=== PATIENT | male | born 1980 | race Caucasian/White ===

== ENCOUNTER 2020-03-27 14:04 | Emergency (ER) | payer OTHER ==
[~2020-03-27] VITALS: Ht 175.3 cm; Wt 95.2 kg
[2020-03-27 14:49] LABS: BASOPHILS ABSOLUTE AUTO 0.09 K/mm3 (0.00-0.23); BASOPHILS PERCENT AUTO 1 % (0-2); EOSINOPHILS ABSOLUTE AUTO 0.01 K/mm3 (0.00-0.68); EOSINOPHILS PERCENT AUTO 0 % (0-6); Hematocrit 46.6 % (37.0-53.0); Hemoglobin 17.1 g/dL (13.5-17.5); IMMATURE GRAN ABSOLUTE AUTO 0.03 K/mm3 (0.00-0.10); IMMATURE GRAN PERCENT AUTO 0 % (0-1); LYMPHOCYTES ABSOLUTE AUTO 0.82 K/mm3 (0.84-5.20); LYMPHOCYTES PERCENT AUTO 7 % (21-46); MONOCYTES ABSOLUTE AUTO 0.94 K/mm3 (0.16-1.47); MONOCYTES PERCENT AUTO 8 % (4-13); Mean Corpuscular HGB 35.6 pg (26.0-34.0); Mean Corpuscular HGB Conc 36.7 g/dL (31.5-36.5); Mean Corpuscular Volume 97 fL (80-100); Mean Platelet Volume 11.3 fL (9.1-12.4); NEUTROPHILS PERCENT AUTO 83 % (41-73); Platelet Count 149 K/mm3 (150-400); RDW Coefficient Variation 13.2 % (11.7-14.2); RDW Standard Deviation 46.5 fL (35.1-46.3); White Blood Cell Count 11.39 K/mm3 (4.00-11.30)
[2020-03-27 15:02] LABS: Alanine Aminotransfer (ALT/SGP 146 U/L (12-78); Albumin, Blood 3.4 g/dL (3.4-5.0); Albumin/Globulin Ratio 0.8 (0.8-1.8); Alk Phos 73 U/L (50-136); Anion Gap 17 mmol/L (6-16); Aspartate Aminotrans (AST/SGOT 175 U/L (12-37); Bilirubin, Total 3.2 mg/dL (0.1-1.0); Blood Urea Nitrogen 4 mg/dL (8-24); Bun/Creatinine Ratio 4.6 (12.0-20.0); CO2, Blood 17 mmol/L (21-32); Calcium, Blood 8.5 mg/dL (8.5-10.1); Chloride, Blood 101 mmol/L (98-108); Creatinine, Blood 0.88 mg/dL (0.60-1.20); Globulin, Blood 4.4 g/dL (2.2-4.0); Glomerular Filtration Rate >60 (60-); Glucose, Blood 110 mg/dL (70-99); Potassium, Blood 3.6 mmol/L (3.5-5.5); Sodium, Blood 135 mmol/L (136-145); Total Protein, Blood 7.8 g/dL (6.4-8.2); Troponin I <0.015 ng/mL (0.000-0.040)
[2020-03-27] MEDS ORDERED: CITA20 PO (17:00)
[2020-03-27] MEDS ORDERED: PRAZ2 PO (17:00)
[2020-03-27] MEDS ORDERED: BUPROPION XL150 M1 PO (17:00)
[2020-03-27] MEDS ORDERED: TRAZ100 PO (17:01)
[2020-03-27] MEDS ORDERED: SERT50 PO (17:01)
[2020-03-27] MEDS ORDERED: QUET25 PO (17:02)
[2020-03-27] MEDS ORDERED: Capsaicin60 GM TOP (17:03)
[2020-03-27] MEDS ORDERED: CYAN500 PO (17:03)
[2020-03-27] MEDS ORDERED: B-1100 M1 PO (17:04)
[2020-03-27] MEDS ORDERED: PYRI100 PO (17:05)
[2020-03-27] MEDS ORDERED: PROM12.5S PR (17:08)
[2020-03-27] MEDS ORDERED: TOPI50 PO (17:15)
[2020-03-27] MEDS ORDERED: Inderal 20 mg T20 MG PO (17:17)
[2020-03-27] MEDS ORDERED: Hydroxyzine HCl50 MG PO (17:17)
[2020-03-27] MEDS ORDERED: PROM25 PO (17:21)
== END 2020-03-27 17:22 | disposition home or self-care (01) ==
LOC: ER 14:04
PROVIDERS: Student in an Organized Health Care Education/Training Program
DX: R06.00 Dyspnea, unspecified (principal); Z20.828 Contact with and (suspected) exposure to other viral communicable diseases; F41.9 Anxiety disorder, unspecified; Z79.899 Other long term (current) drug therapy; Z87.820 Personal history of traumatic brain injury
CPT/HCPCS: 71045; 80053; 84484; 85025; 85379; 93005; 93010; 96374; 96375; 99285-25; J2405; J2550; U0003

== ENCOUNTER 2020-06-26 17:53 | Inpatient (IN) | payer OTHER ==
[~2020-06-26] VITALS: Ht 175.3 cm; Wt 81.8 kg
[~2020-06-26 17:53] MED LIST: B-1100 M1 PO; BUPROPION XL150 M1 PO; CITA20 PO; CYAN500 PO; Capsaicin60 GM TOP; Hydroxyzine HCl50 MG PO; Inderal 20 mg T20 MG PO; PRAZ2 PO; PROM12.5S PR; PROM25 PO; PYRI100 PO; QUET25 PO; SERT50 PO; TOPI50 PO; TRAZ100 PO
[2020-06-26 18:25] LABS: BASOPHILS ABSOLUTE AUTO 0.03 K/mm3 (0.00-0.23); BASOPHILS PERCENT AUTO 0 % (0-2); EOSINOPHILS PERCENT AUTO 0 % (0-6); Hematocrit 30.4 % (37.0-53.0); Hemoglobin 10.6 g/dL (13.5-17.5); IMMATURE GRAN ABSOLUTE AUTO 0.07 K/mm3 (0.00-0.10); IMMATURE GRAN PERCENT AUTO 1 % (0-1); LYMPHOCYTES PERCENT AUTO 9 % (21-46); MONOCYTES ABSOLUTE AUTO 0.49 K/mm3 (0.16-1.47); MONOCYTES PERCENT AUTO 7 % (4-13); Mean Corpuscular HGB 34.8 pg (26.0-34.0); Mean Corpuscular HGB Conc 34.9 g/dL (31.5-36.5); Mean Corpuscular Volume 100 fL (80-100); Mean Platelet Volume 10.8 fL (9.1-12.4); NEUTROPHILS ABSOLUTE AUTO 5.71 K/mm3 (1.96-9.15); NEUTROPHILS PERCENT AUTO 83 % (41-73); NRBC ABSOLUTE 0.03 K/mm3 (0.00-0.02); NRBC Auto 0.4 /100 WBC (0.0-0.2); Platelet Count 289 K/mm3 (150-400); RDW Coefficient Variation 13.9 % (11.7-14.2); RDW Standard Deviation 49.2 fL (35.1-46.3); Red Blood Cell Count 3.05 M/mm3 (4.30-5.90)
[2020-06-26 18:42] LABS: Alanine Aminotransfer (ALT/SGP 31 U/L (12-78); Albumin, Blood 2.5 g/dL (3.4-5.0); Albumin/Globulin Ratio 0.5 (0.8-1.8); Alk Phos 108 U/L (50-136); Anion Gap 14 mmol/L (6-16); Aspartate Aminotrans (AST/SGOT 73 U/L (12-37); Bilirubin, Total 1.8 mg/dL (0.1-1.0); Blood Urea Nitrogen 9 mg/dL (8-24); Bun/Creatinine Ratio 8.2 (12.0-20.0); CO2, Blood 28 mmol/L (21-32); Calcium, Blood 8.4 mg/dL (8.5-10.1); Chloride, Blood 95 mmol/L (98-108); Ethanol (Alcohol), Blood, Med 42 mg/dL; Globulin, Blood 4.8 g/dL (2.2-4.0); Glomerular Filtration Rate >60 (60-); Glucose, Blood 111 mg/dL (70-99); Potassium, Blood 3.1 mmol/L (3.5-5.5); Sodium, Blood 137 mmol/L (136-145); Total Protein, Blood 7.3 g/dL (6.4-8.2)
[2020-06-26 19:17] LABS: Source, Urine Clean Catch
[2020-06-26 19:21] LABS: Appearance, Urine Clear (Clear); Blood, Urine 1+ (Neg); Color, Urine Amber (P-Yellow); Glucose Qualitative, Urine Neg (Neg); Ketones, Urine 1+ (Neg); Leukocyte Esterase, Urine 1+ (Neg); Nitrite, Urine Pos (Neg); Protein, Urine 2+ (Neg); Urobilinogen, Urine 4+ (Normal)
[2020-06-26 19:29] LABS: Bilirubin, Urine 2+ (Neg)
[2020-06-26 19:31] LABS: Hyaline Casts Rare /lpf (0-2); Red Blood Cells, Urine 0-2 /hpf (0-2); Squamous Epithelial Cells Rare /hpf (Few)
[2020-06-26 19:32] LABS: Bacteria Rare /hpf; Transitional Epithelial Cells Few /hpf (0-Rare)
[2020-06-26 19:36] LABS: U Amphetamine Screen Not Detected; U Barbituate Screen Not Detected; U Benzodiazapine Screen Not Detected; U Buprenorphine Screen Not Detected; U Cannabinoids Screen DETECTED; U Cocaine Screen Not Detected; U Methadone Screen Not Detected; U Methamphetamine Screen Not Detected; U Opiates Screen Not Detected; U Oxycodone Screen Not Detected; U Phencyclidine Screen Not Detected; U Propoxyphene Screen Not Detected
[2020-06-26 19:43] LABS: Magnesium, Blood 1.7 mg/dL (1.6-2.4); Phosphorus, Blood 3.8 mg/dL (2.5-4.9)
[2020-06-26] MEDS ORDERED: Aspir 8181 MG PO (20:09)
[2020-06-26] MEDS ORDERED: Percocet 5-3251 EACH PO (20:10)
[2020-06-26 23:42] LABS: CPK Creatine Kinase 59 U/L (39-308); Troponin I <0.015 ng/mL (0.000-0.040)
--- NOTE | 2020-06-27 04:32 | NUR ---
SHIFT SUMMARY ASSUMED CARE OF PT AT 2100. PT IS A/OX4, STATES HE HAS NUMBESS IN HIS BODY FROM THE CHEST DOWN. PT STATES HE FEELS DEPRESSED DUE TO DIVORCE WITH HIS CAREGIVER/ THIS . PT BEEN DRINKING FOR THE PAST 3 YEARS AND STATES HE HAS BEEN FEELING THE WORST THIS LAST 6 MONTHS. TELE SHOWS SINUS @ 82, LUNG SOUNDS CLEAR. PT STATES HE HAS BEEN EATING POORLY BECAUSE HE FORGETS TO EAT DUE TO HIS TBI FROM AN ACCIDENT [place]. PT HAS BEEN USING URINAL AT BEDSIDE. NO ACUTE EVENTS DURING THE NIGHT. PT SLEPT A COUPLE HOURS DURING THE NIGHT. CALL LIGHT IN REACH, BED IN LOWEST POSTION.
[2020-06-27 07:37] LABS: BASOPHILS ABSOLUTE AUTO 0.02 K/mm3 (0.00-0.23); BASOPHILS PERCENT AUTO 0 % (0-2); EOSINOPHILS ABSOLUTE AUTO 0.04 K/mm3 (0.00-0.68); EOSINOPHILS PERCENT AUTO 1 % (0-6); Hematocrit 28.5 % (37.0-53.0); Hemoglobin 9.9 g/dL (13.5-17.5); IMMATURE GRAN ABSOLUTE AUTO 0.03 K/mm3 (0.00-0.10); IMMATURE GRAN PERCENT AUTO 0 % (0-1); LYMPHOCYTES ABSOLUTE AUTO 1.51 K/mm3 (0.84-5.20); LYMPHOCYTES PERCENT AUTO 22 % (21-46); MONOCYTES ABSOLUTE AUTO 0.47 K/mm3 (0.16-1.47); MONOCYTES PERCENT AUTO 7 % (4-13); Mean Corpuscular HGB 34.6 pg (26.0-34.0); Mean Corpuscular HGB Conc 34.7 g/dL (31.5-36.5); Mean Corpuscular Volume 100 fL (80-100); Mean Platelet Volume 10.8 fL (9.1-12.4); NEUTROPHILS ABSOLUTE AUTO 4.73 K/mm3 (1.96-9.15); NEUTROPHILS PERCENT AUTO 70 % (41-73); NRBC ABSOLUTE 0.02 K/mm3 (0.00-0.02); NRBC Auto 0.3 /100 WBC (0.0-0.2); Platelet Count 335 K/mm3 (150-400); Red Blood Cell Count 2.86 M/mm3 (4.30-5.90)
[2020-06-27 07:56] LABS: Alanine Aminotransfer (ALT/SGP 28 U/L (12-78); Albumin, Blood 2.8 g/dL (3.4-5.0); Albumin/Globulin Ratio 0.7 (0.8-1.8); Alk Phos 96 U/L (50-136); Anion Gap 7 mmol/L (6-16); Aspartate Aminotrans (AST/SGOT 61 U/L (12-37); Bilirubin, Total 2.2 mg/dL (0.1-1.0); Blood Urea Nitrogen 7 mg/dL (8-24); CO2, Blood 29 mmol/L (21-32); CPK Creatine Kinase 52 U/L (39-308); Calcium, Blood 8.4 mg/dL (8.5-10.1); Chloride, Blood 101 mmol/L (98-108); Globulin, Blood 4.2 g/dL (2.2-4.0); Glomerular Filtration Rate >60 (60-); Glucose, Blood 98 mg/dL (70-99); Potassium, Blood 3.3 mmol/L (3.5-5.5); Sodium, Blood 137 mmol/L (136-145); Troponin I <0.015 ng/mL (0.000-0.040)
--- NOTE | 2020-06-27 10:56 | NUR ---
Echocardiogram completed.
--- NOTE | 2020-06-27 12:02 | NUR ---
CONFIRMED 2,500 ML BOLUS W/ DR ISTRATE BEFORE PROCEEDING
[2020-06-27 12:07] LABS: Source, Urine Clean Catch
[2020-06-27 12:17] LABS: Appearance, Urine Clear (Clear); Blood, Urine Neg (Neg); Color, Urine Yellow (P-Yellow); Glucose Qualitative, Urine Neg (Neg); Ketones, Urine Neg (Neg); Leukocyte Esterase, Urine Neg (Neg); Nitrite, Urine Neg (Neg); Protein, Urine 1+ (Neg); Urobilinogen, Urine 3+ (Normal)
[2020-06-27 12:36] LABS: Bilirubin, Urine 1+ (Neg)
[2020-06-27 13:19] LABS: BASOPHILS ABSOLUTE AUTO 0.03 K/mm3 (0.00-0.23); BASOPHILS PERCENT AUTO 1 % (0-2); EOSINOPHILS ABSOLUTE AUTO 0.03 K/mm3 (0.00-0.68); EOSINOPHILS PERCENT AUTO 1 % (0-6); Hematocrit 26.5 % (37.0-53.0); IMMATURE GRAN ABSOLUTE AUTO 0.04 K/mm3 (0.00-0.10); IMMATURE GRAN PERCENT AUTO 1 % (0-1); LYMPHOCYTES ABSOLUTE AUTO 1.07 K/mm3 (0.84-5.20); LYMPHOCYTES PERCENT AUTO 17 % (21-46); MONOCYTES ABSOLUTE AUTO 0.61 K/mm3 (0.16-1.47); MONOCYTES PERCENT AUTO 10 % (4-13); Mean Corpuscular HGB 34.2 pg (26.0-34.0); Mean Corpuscular Volume 101 fL (80-100); Mean Platelet Volume 10.8 fL (9.1-12.4); NEUTROPHILS ABSOLUTE AUTO 4.39 K/mm3 (1.96-9.15); NEUTROPHILS PERCENT AUTO 71 % (41-73); Platelet Count 319 K/mm3 (150-400); RDW Coefficient Variation 13.9 % (11.7-14.2); RDW Standard Deviation 50.3 fL (35.1-46.3); Red Blood Cell Count 2.63 M/mm3 (4.30-5.90); White Blood Cell Count 6.17 K/mm3 (4.00-11.30)
--- NOTE | 2020-06-27 17:24 | NUR ---
SHIFT SUMMARY PT A&Ox4, COOPERATIVE, AND CALM. ON TELE SR @ 64. EXPERIENCING WEAKNESS AND NUMBESS FROM THE CHEST DOWN, BUT PRIMARILY IN THE LEGS. ALSO EXPERIENCING PAIN IN THE LEGS. PT WAS HAVING MILD TREMORS AND BECOMING MORE AMPED UP THAN EARLIER IN THE DAY. CIWA WAS THEN ORDERED, PT SCORED A 7 AT TIME OF FIRST ASSESSMENT AND REQUIRED NO INTERVENTIONS. 2.5 L BOLUS GIVEN TODAY PER ISTRATE AND SEPSIS PROTOCOL. BP STILL RAN LOW 100/60'S. LEVOFLOXACIN CURRENTLY RUNNING WITH DELAYED BANANA BAG. URINALYSIS AND COVID COLLECTED TODAY, COVID CAME BACK NEGATIVE. PT HAD SEVERAL LOOSE BM. WILL REPORT TO ONCOMING NURSE. PT CURRENTLY LYING IN BED WITH CALL LIGHT WITHIN REACH.
--- NOTE | 2020-06-28 02:02 | NUR ---
PT TRANSFER ASSUMED CARE OF PT AT 1900. PT WAS A/OX4 BUT HAS BEEN GETTING PRGESSIVELY MORE CONFUSED THE SHIFT WENT ON. AROUND 2099 PT RECEIVED LIBRIUM FOR SOME MILD CONFUSION. THEN AROUND 004 PT BECOME MORE CONFUSED, WOULD TEAR OFF IS TELE MONITOR AND CONTINUOUS PULSE OX. PT IS NOT ORIENTED TO SELF/PLACE OR SITUATION. PT HAS TREMORS AND SWEATS. VITAL SIGNS ARE STABLE. PT HAS BEEN HEARING/SEEING PEOPLE HE KNOWS IN HIS ROOM, PT WORDS ARE BECOMING MORE SCRAMBLED AND HE HAS FLIGHT OF IDEAS. PT URINE IS DARK AND ELLIE. PT HAS HAS TWO EPISODES OF LOOSE STOOL, IMODIUM WAS GIVEN ONCE. PT IS 2P SBA TO COMMODE. PT IS NOT BEING TRANSFERED TO ICU DO TO INCREASING CIWAH SCORES. LAST CIWAH WAS 18. TIME IS 0215 ON 06/28/20.
--- NOTE | 2020-06-28 03:00 | NUR ---
PT ARRIVES TO ICU 5 PCU STATUS PT AT 0222 FROM MEDICAL FLOOR FOR ETOH WITHDRAWAL WITH CIWA OF 19 PER MEDICAL FLOOR RN. ON ARRIVAL TO ICU, PT IS NOTED THRASHING IN BED, DOES NOT REDIRECT, RARELY MAKES EYE CONTACT TO SPOKEN NAME. HE IS MUMBLING WITH ONLY OCCASIONALLY RECOGNIZABLE WORDS, VISIBLE TREMORS ARE NOTED. EYE AND EXTREMITY MOVEMENT INDICATE VISUAL, AUDITORY, AND TACTILE HALLUCINATIONS, CIWA IS RATED AT GREATER THAN 40, ATIVAN 4 MG IV ADMIN AND PT IS MONITORED X 15 MINUTES WITHOUT IMPROVEMENT IN SCORE, ADDITIONAL DOSE OF ATIVAN 4 MG IV ADMINISTERED WITH CIWA DECREASED TO 10 WITHIN 10 MINUTES OF ADMINISTRATION. PT IS NOW RESTING QUIETLY, SATS ARE MAINTAINING MID 90S, RESP RATE HIGH TEEN, LUNGS ARE CLEAR THROUGHOUT. HRR, SINUS ON MONITOR, RATE 70S, PRESSURE MAINTAINING, SKIN IS PWD, NO EDEMA IS NOTED, PULSES ARE FULL X 4. ABD SOFT, NO GRIMACING WITH LIGHT PALPATION. ATTENDS PLACED FOR PROBABLE URINARY INCONTINENCE. IV ACCESS IS NOTED 20 GUAGE TO LEFT FOREARM, FLUSHES WELL, NO REDNESS/SWELLING, OR DRAINAGE AT INSERTIONS SITE, DRESSING CDI, IVF WITH ADDITIVES IS INFUSING AT 75 ML/HR SEE EMAR. WILL CONT TO MONITOR.
--- NOTE | 2020-06-28 05:33 | NUR ---
PT INTITIALLY PRESENTS TO ICU WITH CIWA GREATER THAN 40 HOWEVER TOTAL NOC SHIFT ATIVAN PRIOR TO ARRIVAL TO ICU WAS 3 MG, AND LIBRIUM WAS 100 MG TOTAL. TWO ATIVAN DOSES OF 4 MG IV WERE ADMINISTERED AT 15 MINUTE ORDERED INTERVAL WITH GOOD IMPROVEMENT IN PT'S CIWA SCORE, HE REMAINS AT CIWA SCORE OF 10 AT THIS TIME, CONTINUES TO MAINTAIN AIRWAY WELL, SATS MAINTAINING UPPER 90S ON ROOM AIR, LUNGS REMAIN CLEAR THROUGHOUT, RATE TEENS. SINUS RHYTHM CONTINUES, PT IS NOTED SINUS PETER MID 50S AT THIS TIME, PRESSURES CONT TO MAINTAIN. ATTENDS REMAINS CLEAN AND DRY AT THIS TIME AND IVF CONTINUES INFUSING, WILL CONT TO MONITOR CIWA SCORES AND MEDICATE PRN.
[2020-06-28 06:31] LABS: BASOPHILS ABSOLUTE AUTO 0.03 K/mm3 (0.00-0.23); BASOPHILS PERCENT AUTO 1 % (0-2); EOSINOPHILS ABSOLUTE AUTO 0.06 K/mm3 (0.00-0.68); EOSINOPHILS PERCENT AUTO 1 % (0-6); Hematocrit 26.1 % (37.0-53.0); Hemoglobin 8.8 g/dL (13.5-17.5); IMMATURE GRAN ABSOLUTE AUTO 0.04 K/mm3 (0.00-0.10); IMMATURE GRAN PERCENT AUTO 1 % (0-1); LYMPHOCYTES ABSOLUTE AUTO 1.33 K/mm3 (0.84-5.20); LYMPHOCYTES PERCENT AUTO 28 % (21-46); MONOCYTES ABSOLUTE AUTO 0.32 K/mm3 (0.16-1.47); MONOCYTES PERCENT AUTO 7 % (4-13); Mean Corpuscular HGB 34.5 pg (26.0-34.0); Mean Corpuscular HGB Conc 33.7 g/dL (31.5-36.5); Mean Corpuscular Volume 102 fL (80-100); Mean Platelet Volume 10.5 fL (9.1-12.4); NEUTROPHILS ABSOLUTE AUTO 2.93 K/mm3 (1.96-9.15); NEUTROPHILS PERCENT AUTO 62 % (41-73); Platelet Count 365 K/mm3 (150-400); RDW Coefficient Variation 14.2 % (11.7-14.2); RDW Standard Deviation 52.2 fL (35.1-46.3); Red Blood Cell Count 2.55 M/mm3 (4.30-5.90); White Blood Cell Count 4.71 K/mm3 (4.00-11.30)
[2020-06-28 06:58] LABS: Alanine Aminotransfer (ALT/SGP 22 U/L (12-78); Albumin, Blood 2.2 g/dL (3.4-5.0); Albumin/Globulin Ratio 0.6 (0.8-1.8); Alk Phos 79 U/L (50-136); Aspartate Aminotrans (AST/SGOT 34 U/L (12-37); Bilirubin, Direct 0.8 mg/dL (0.0-0.3); Bilirubin, Indirect 0.7 mg/dL (0.1-0.7); Bilirubin, Total 1.5 mg/dL (0.1-1.0); Blood Urea Nitrogen 5 mg/dL (8-24); Bun/Creatinine Ratio 5.9 (12.0-20.0); CO2, Blood 25 mmol/L (21-32); Calcium, Blood 7.8 mg/dL (8.5-10.1); Chloride, Blood 115 mmol/L (98-108); Creatinine, Blood 0.85 mg/dL (0.60-1.20); Globulin, Blood 3.8 g/dL (2.2-4.0); Glomerular Filtration Rate >60 (60-); Glucose, Blood 87 mg/dL (70-99); Magnesium, Blood 2.2 mg/dL (1.6-2.4); Percent Saturation 28.4 % (20.0-50.0); Phosphorus, Blood 2.6 mg/dL (2.5-4.9); Potassium, Blood 3.3 mmol/L (3.5-5.5)
[2020-06-28 07:19] LABS: Anion Gap 7 mmol/L (6-16); Sodium, Blood 147 mmol/L (136-145)
--- NOTE | 2020-06-28 10:24 | NUR ---
CARE ASSUMED ASSESSMENT COMPLETED, PT RESTING IN BED WITH EYES CLOSED, WAKES EASILY TO VOICE, IS CONFUSED UPON WAKING AND DOES NOT FOLLOW COMMANDS, GOES BACK TO SLEEP QUICKLY. VSS, BANANA BAG INFUSING 75ML/HR, NO OTHER GTT'S AT THIS TIME. PT SLEPT UNTIL 1000 WHEN HE WOKE STATING HE HAD TO VOID, WAS CONFUSED AND WOULD NOT USE URINAL, BEGAN THRASHING IN BED AND ATTEMPTING TO GET UP, PULLING AT LINES. RESTRAINTS PLACED PER ORDERS, ATIVAN ADMINISTERED. PT THEN WENT BACK TO SLEEP, WILL CONTINUE TO MONITOR.
--- NOTE | 2020-06-28 11:41 | NUR ---
UPDATE DR. HUERTA IN TO SEE PATIENT, IS AWARE OF BEHAVIOR AND ELEVATED CIWA SCORES. PT CHANGED TO ICU STATUS, PRECEDEX INITIAITED. PT PLEASANT BUT CONFUSED, ANXIOUS, ATTEMPTING TO GET OUT OF BED. PRECEDEX CURRENTLY AT 0.7MCG, HR 60'S, BP STABLE, WILL TITRATE NEEDED.
[2020-06-28 13:18] LABS: BASOPHILS ABSOLUTE AUTO 0.04 K/mm3 (0.00-0.23); BASOPHILS PERCENT AUTO 1 % (0-2); EOSINOPHILS ABSOLUTE AUTO 0.05 K/mm3 (0.00-0.68); EOSINOPHILS PERCENT AUTO 1 % (0-6); Hematocrit 29.5 % (37.0-53.0); Hemoglobin 9.7 g/dL (13.5-17.5); IMMATURE GRAN ABSOLUTE AUTO 0.04 K/mm3 (0.00-0.10); IMMATURE GRAN PERCENT AUTO 1 % (0-1); LYMPHOCYTES ABSOLUTE AUTO 1.19 K/mm3 (0.84-5.20); LYMPHOCYTES PERCENT AUTO 25 % (21-46); MONOCYTES ABSOLUTE AUTO 0.36 K/mm3 (0.16-1.47); MONOCYTES PERCENT AUTO 8 % (4-13); Mean Corpuscular HGB Conc 32.9 g/dL (31.5-36.5); Mean Corpuscular Volume 104 fL (80-100); Mean Platelet Volume 10.3 fL (9.1-12.4); NEUTROPHILS ABSOLUTE AUTO 3.02 K/mm3 (1.96-9.15); NEUTROPHILS PERCENT AUTO 64 % (41-73); Platelet Count 416 K/mm3 (150-400); RDW Coefficient Variation 14.1 % (11.7-14.2); RDW Standard Deviation 53.1 fL (35.1-46.3); Red Blood Cell Count 2.85 M/mm3 (4.30-5.90)
[2020-06-28 13:25] LABS: Source, Urine Catheter
[2020-06-28 14:11] LABS: Appearance, Urine Clear (Clear); Bilirubin, Urine Neg (Neg); Blood, Urine Neg (Neg); Color, Urine Amber (P-Yellow); Glucose Qualitative, Urine Neg (Neg); Ketones, Urine Neg (Neg); Leukocyte Esterase, Urine Neg (Neg); Nitrite, Urine Neg (Neg); Protein, Urine Neg (Neg); Specific Gravity, Urine 1.005 (1.003-1.022); Urobilinogen, Urine 1+ (Normal)
--- NOTE | 2020-06-28 19:00 | NUR ---
ASSUMED CARE OF PT, BEDSIDE REPORT RECEIVED. PT IS NOTED TO BE RESTING QUIETLY PRIOR TO STAFF ENTERING ROOM HOWEVER WITH STAFF AT BEDSIDE AND SPEAKING IN ROOM, PT IS NOTED TO HAVE INCREASED AGITATION AND BECOMES RESTLESS IN THE BED PULLING AGAINST WRIST RESTRAINTS AND MUMBLING. HE RETURNS TO RESTING QUIETLY WHEN STIMULUS OF STAFF SPEAKING IS REMOVED FROM ROOM. LUNGS ARE CLEAR THROUGHOUT, SATS MAINTAINING ON ROOM AIR, RESP RATE TEENS, NO VISIBLE INCREASED WORK OF BREATHING, MUMBLING DURATION EQUIVALENT TO SPEAKING IN FULL SENTENCES. HRR, SINUS ON MONITOR, SINUS PETER IN THE 50S WITH PERIODS OF CALM, INCREASES TO 70S WITH AGITATION. HYPOACTIVE BOWEL TONES, ABD SOFT, ATTENDS REMAINS IN PLACE. PATEL CATH IS NOW NOTED, DRAINING CLEAR DARK YELLOW URINE TO GRAVITY. BANANA BAG INFUSING AT 75 ML/HR, WELL K-PHOS AT 100 ML/HR, AND PRECEDEX AT 0.3 MCG/KG/HR. BILAT WRIST RESTRAINTS, SEE RESTRAINT DOCUMENTATION, IV ACCESS NOTED TO BILAT HANDS, SEE VASCULAR ACCESS CHARTING. WILL MONITOR CIWA AND TITRATE PRECEDEX HR ALLOWS, ATIVAN PER ORDERS.
--- NOTE | 2020-06-28 19:31 | NUR ---
END OF SHIFT PT HAD UNEVENTFUL SHIFT AFTER PRECEDEX GTT INITIATED. HR 50'S SINUS, OTHER VSS, SCHEDULED BP MEDS HELD FOR HR. PRECEDEX AT 0.3MCG, PT RESTING QUIETLY LONG NOT STIUMULATED. NO BATH GIVEN TODAY PT BECOMES AGITATED WHEN WOKEN, TRYING TO GET OOB TO GO TO BR, NOT EASILY REDIRECTABLE BUT CALMS AND GOES BACK TO SLEEP WHEN STAFF STEPS OUT OF ROOM. ORIENTED TO SELF ONLY. PATEL AND 2 IV'S PLACED THIS SHIFT, ALL PATENT, GOOD URINE OUTPUT, NO BM THIS SHIFT. REPORT TO ONCOMING NURSE.
[2020-06-29 04:49] LABS: BASOPHILS ABSOLUTE AUTO 0.03 K/mm3 (0.00-0.23); BASOPHILS PERCENT AUTO 1 % (0-2); EOSINOPHILS ABSOLUTE AUTO 0.06 K/mm3 (0.00-0.68); EOSINOPHILS PERCENT AUTO 1 % (0-6); Hematocrit 27.4 % (37.0-53.0); Hemoglobin 9.2 g/dL (13.5-17.5); IMMATURE GRAN ABSOLUTE AUTO 0.03 K/mm3 (0.00-0.10); IMMATURE GRAN PERCENT AUTO 1 % (0-1); LYMPHOCYTES PERCENT AUTO 22 % (21-46); MONOCYTES ABSOLUTE AUTO 0.36 K/mm3 (0.16-1.47); MONOCYTES PERCENT AUTO 7 % (4-13); Mean Corpuscular HGB 34.3 pg (26.0-34.0); Mean Corpuscular HGB Conc 33.6 g/dL (31.5-36.5); Mean Corpuscular Volume 102 fL (80-100); Mean Platelet Volume 10.2 fL (9.1-12.4); NEUTROPHILS PERCENT AUTO 69 % (41-73); Platelet Count 447 K/mm3 (150-400); RDW Standard Deviation 51.6 fL (35.1-46.3); Red Blood Cell Count 2.68 M/mm3 (4.30-5.90); White Blood Cell Count 5.48 K/mm3 (4.00-11.30)
[2020-06-29 05:07] LABS: Alanine Aminotransfer (ALT/SGP 21 U/L (12-78); Albumin, Blood 2.1 g/dL (3.4-5.0); Albumin/Globulin Ratio 0.5 (0.8-1.8); Alk Phos 74 U/L (50-136); Anion Gap 8 mmol/L (6-16); Aspartate Aminotrans (AST/SGOT 26 U/L (12-37); Bilirubin, Total 1.4 mg/dL (0.1-1.0); Blood Urea Nitrogen 3 mg/dL (8-24); Bun/Creatinine Ratio 3.3 (12.0-20.0); CO2, Blood 26 mmol/L (21-32); Calcium, Blood 7.9 mg/dL (8.5-10.1); Chloride, Blood 111 mmol/L (98-108); Creatinine, Blood 0.92 mg/dL (0.60-1.20); Globulin, Blood 3.9 g/dL (2.2-4.0); Glomerular Filtration Rate >60 (60-); Glucose, Blood 100 mg/dL (70-99); Magnesium, Blood 2.2 mg/dL (1.6-2.4); Sodium, Blood 145 mmol/L (136-145)
--- NOTE | 2020-06-29 05:43 | NUR ---
PT WITH INTERMITTENT PERIODS OF INCREASED AGITATION EARLY IN THIS SHIFT, PRECEDEX WAS TITRATED WITH CARE PT'S BASELINE HEART RATE WITH SLEEP WAS LOW TO MID 50S ON SUNDAY NOC WITHOUT PRECEX INFUSING, OF THIS AM PRECEDEX IS INFUSING AT 0.5 MCG/KG/HR, HE REMAINS ROUSABLE TO VERBAL STIMULI, MUMBLED SPEECH CONTINUES HOWEVER OF 399 ASSESSMENT SPEECH IS SOMEWHAT UNDERSTOOD, HE DID ANSWER THAT HE IS IN THE HOSPITAL HOWEVER STATED THAT HE WAS IN [place] BUT THEN LAUGHS AND SAYS NOT [place] BUT IS UNABLE TO STATE LOCATION OF HOSPITAL. HE CONTINUES TO MAINTAIN SATS ON ROOM AIR, LUNGS REMAIN CLEAR THROUGHOUT, RATE MID TEENS. HRR, SINUS PETER IN THE 50S MOST OF THIS SHIFT, DID DECREASE TO MID 40S WITH PRECEDEX INCREASE TO 0.6 MCG/KG/HR DURING EXTENDED DWELL INSERTION HOWEVER IMPROVED AND MAINTAINING AT PT'S BASELINE WITH TITRATION BACK DOWN TO 0.5 MCG/KG/HR, PRESSURES MAINTAINING STABLE, PULSES REMAIN FULL X 4. ABD CONTINUES WITH HYPOACTIVE BOWEL TONES, SOFT, NONTENDER TO PALP. PATEL CONTINUES DRAINING CLEAR DARK YELLOW URINE THROUGHOUT NOC.
--- NOTE | 2020-06-29 07:27 | NUR ---
ASSUMED CARE: PT RESTING IN BED, ROUSES EASILY. BILATERAL WRIST RESTRAINTS IN PLACE DUE TO FIDGETING AND ACCIDENTAL PULL OF LINES. HE IS CURRENTLY ON 0.5MCG/KG/MIN OF PRECEDEX WITH HR IN 50S WHICH BLENDING TANK TENDER REPORTS BASELINE. ISTRATE CALLED AND INSTRUCTS TO GIVE KPHOS INSTEAD OF SECOND BAG OF KCL. NO ACUTE NEEDS AT THIS TIME.
--- NOTE | 2020-06-29 10:13 | NUR ---
CALL TO PHARMACY TO VERIFY IF BANANA BAG IS COMPATIBLE WITH KPHOS WITH NO DATA. AWAITING BANANA BAG FOR AFTER KPHOS COMPLETED.
--- NOTE | 2020-06-29 11:17 | NUR ---
PT'S DAUGHTER CLARITY ARRIVED AND WAS GIVEN AN UPDATE. SHE WAS TOLD THAT NO ONE ELSE IS LISTED AT THIS TIME FOR PERMISSION TO GIVE MEDICAL INFORMATION SO OTHER FAMILY WILL BE DEFERRED TO HER. PRECEDEX TITRATED TO 0.3MCG/KG/MIN AT THIS TIME. RESTING QUIETLY
--- NOTE | 2020-06-29 18:44 | NUR ---
SHIFT SUMMARY: PRECEDEX AT 0.3MCG/KG/MIN. MEDICATED WITH 2MG ATIVAN X1. REMAINS IN BILATERAL WRIST RESTRAINTS. WAKES UP OCCASIONALLY, TALKING TO STAFF BUT SPEECH IS AT TIMES GARBLED AND CONFUSED. PT HAS BEEN PLEASANT AND COOPERATIVE TODAY, CIWA 7
--- NOTE | 2020-06-29 21:14 | NUR ---
CARE ASSUMPTION PT A&O TO SELF, CALM & COOPERATIVE, FIDGETING W/ BLANKETS & ITEMS WITHIN REACH. BILAT HANDS TREMULOUS. SPEECH INTERMITTENTLY MUMBLED/CLEAR. BILAT SWR IN PLACE. CIWA 4. PRECEDEX GTT TITRATED FROM 0.3 MCG/KG/HR TO 0.2 MCG/KG/HR. VSS. MONITOR SHOWS SB, HR 50's. SPO2 > 92% ON RA. PATEL CATH PATENT & DRAINING. WILL CONTINUE TO MONITOR & PROVIDE CARE.
[2020-06-30 03:46] LABS: BASOPHILS ABSOLUTE AUTO 0.04 K/mm3 (0.00-0.23); BASOPHILS PERCENT AUTO 1 % (0-2); EOSINOPHILS ABSOLUTE AUTO 0.04 K/mm3 (0.00-0.68); EOSINOPHILS PERCENT AUTO 1 % (0-6); Hemoglobin 9.2 g/dL (13.5-17.5); IMMATURE GRAN ABSOLUTE AUTO 0.03 K/mm3 (0.00-0.10); IMMATURE GRAN PERCENT AUTO 0 % (0-1); LYMPHOCYTES ABSOLUTE AUTO 0.86 K/mm3 (0.84-5.20); LYMPHOCYTES PERCENT AUTO 13 % (21-46); MONOCYTES ABSOLUTE AUTO 0.46 K/mm3 (0.16-1.47); MONOCYTES PERCENT AUTO 7 % (4-13); Mean Corpuscular HGB 34.5 pg (26.0-34.0); Mean Corpuscular HGB Conc 34.1 g/dL (31.5-36.5); Mean Corpuscular Volume 101 fL (80-100); Mean Platelet Volume 9.9 fL (9.1-12.4); NEUTROPHILS PERCENT AUTO 79 % (41-73); Platelet Count 492 K/mm3 (150-400); RDW Coefficient Variation 13.9 % (11.7-14.2); RDW Standard Deviation 50.6 fL (35.1-46.3); Red Blood Cell Count 2.67 M/mm3 (4.30-5.90); White Blood Cell Count 6.83 K/mm3 (4.00-11.30)
[2020-06-30 04:07] LABS: Alanine Aminotransfer (ALT/SGP 17 U/L (12-78); Albumin, Blood 2.1 g/dL (3.4-5.0); Albumin/Globulin Ratio 0.5 (0.8-1.8); Alk Phos 79 U/L (50-136); Anion Gap 10 mmol/L (6-16); Aspartate Aminotrans (AST/SGOT 19 U/L (12-37); Bilirubin, Total 1.7 mg/dL (0.1-1.0); Blood Urea Nitrogen 4 mg/dL (8-24); Bun/Creatinine Ratio 4.6 (12.0-20.0); CO2, Blood 24 mmol/L (21-32); Calcium, Blood 8.1 mg/dL (8.5-10.1); Chloride, Blood 107 mmol/L (98-108); Creatinine, Blood 0.88 mg/dL (0.60-1.20); Glomerular Filtration Rate >60 (60-); Glucose, Blood 102 mg/dL (70-99); Magnesium, Blood 1.9 mg/dL (1.6-2.4); Phosphorus, Blood 3.8 mg/dL (2.5-4.9); Potassium, Blood 3.5 mmol/L (3.5-5.5); Sodium, Blood 141 mmol/L (136-145); Total Protein, Blood 6.1 g/dL (6.4-8.2)
--- NOTE | 2020-06-30 05:56 | NUR ---
SHIFT SUMMARY PT CONTINUES TO BE A&O TO SELF, DISORIENTED TO PLACE & TIME. PT FORGETFUL & REQUIRES FREQUENT REMINDING. BILAT SWR IN PLACE FOR PROTECTION OF CORDS/LINES. CIWA 4-6 THIS SHIFT. BILAT HANDS TREMULOUS. PRECEDEX GTT INFUSING @ 0.2 MCG/KG/HR. VSS. MONITOR SHOWS SB-SR, HR 50's-60's. SPO2 > 92% ON RA. PATEL CATH PATENT & DRAINING. PT ABLE TO REPOSITION SELF IN BED. WILL CONTINUE TO MONITOR & PROVIDE CARE UNTIL REPORT OFF TO DAY SHIFT RN.
--- NOTE | 2020-06-30 08:05 | NUR ---
INITIAL ASSESSMENT PATIENT SLEEPING SOUNDLY UPON ENTERING ROOM. PATIENT CALM AND COOPERATIVE. PATIENT ALERT AND ORIENTED EXCEPT TO MONTH. CIWA SCORE OF 8. FINE TREMORS NOTED. SPEECH SLURRED AT TIMES. PATIENT WEAK BUT ABLE TO MOVE ALL EXTREMITIES. PATIENT AFEBRILE. PATIENT STATES HE HAS CHRONIC L SHOULDER PAIN. LUNGS CLEAR THROUGHOUT. PATIENT SATTING 90% AND GREATER ON RA. PATIENT IN SR, HR IN THE 60S. SBP 120S TO 130S. ABDOMEN MILDLY DISTENDED, SOFT, WITH NORMOACTIVE BS NOTED. PATIENT HAVING DIARRHEA PRIOR TO ADMIT. PATEL DRAINING ORANGE COLORED URINE. PRECEDEX INFUSING AT 0.2 MCG/ KG/ HOUR. D5W 1/2 NS INFUSING AT 75 MLS/ HOUR. BED LOW, CALL LIGHT IN REACH, BED ALARM ON. WILL CONTINUE TO MONITOR PATIENT FREQUENTLY THROUGHOUT SHIFT.
--- NOTE | 2020-06-30 12:50 | NUR ---
CIWA OF 7. PRECEDEX PLACED ON SB EARLIER IN AM. PATIENT SLIGHTLY MORE ANXIOUS. HR 70S TO 80S. SBP 90S TO 120S. BED LOW, CALL LIGHT IN REACH, BED ALARM ON. WILL CONTINUE TO MONITOR.
--- NOTE | 2020-06-30 13:58 | NUR ---
CAMERA MONITOR NOTIFIED THAT PATIENT NEEDS PLACED ON CAMERA.
--- NOTE | 2020-06-30 16:30 | NUR ---
PATIENT'S ANXIETY AND CONFUSION HAS INCREASED. PATIENT HAS BECOME VERY RESTLESS AND PULLING AT LINES, CORDS AND ITEMS IN REACH. CIWA OF 17. HR 60S TO 80S. SBP 90S TO 130S.
--- NOTE | 2020-06-30 18:55 | NUR ---
SHIFT SUMMARY PATIENT CALM, COOPERATIVE AND MOSTLY ORIENTED (BUT FOREGETFUL) UNTIL MID AFTERNOON WHEN PATIENT BEGAN TO ESCALATE. PATIENT BECAME ANXIOUS, RESTLESS. PATIENT BEGAN HAVING ACTIVE HALLUCINATIONS. LATER IN SHIFT PATIENT WAS EATING [place]. PATIENT LISTENED WHEN NURSE ASKED TO SPIT OUT. CIWAS RANGED FROM 7 TO 17. FINE TREMORS NOTED T/O DAY. PATIENT STATES THAT HE HAS HAD THOUGHTS ABOUT ENDING HIS LIFE/ GOING TO SLEEP AND NOT WAKING UP. PATIENT DENIED THOUGHTS ABOUT HOW HE WOULD DO THIS. PATIENT ASKED IF HE WANTED TO QUIT DRINKING ALCOHOL AND HE STATED "DEPENDS ON MY FAMILY". PATIENT INDICATED THROUGH NURSES QUESTIONS THAT NOT DRINKING MAY MAKE FAMILY MATTERS MORE DIFFICULT. PATIENT GIVEN TOTAL OF 5 MG OF ATIVAN AND 150 MG LIBRIUM. PRECEDEX DRIP RANGED FROM SB TO 0.6 MCG/ KG/ HOUR. PRECEDEX CURRENTLY AT 0.6 MCG/ KG/ HOUR. PATIENT GIVEN PRN PERCOCET OT DURING SHIFT FOR COMPLAINTS OF CHRONIC PAIN. PATIENT REMAINED AFEBRILE. PATIENT HAS LIMITED ROM IN LEFT SHOULDER DUE TO MULTIPLE SURGERIES. PATIENT REMAINED SATTING 90% AND GREATER ON RA. PATIENT REMAINED IN SR, HR 60S TO 80S. SBP 90S TO 130S. PATIENT HAD ONE STOOL THIS SHIFT; MEDIUM LIQUID BROWN. PATIENT STARTED ON SOFT DIET AFTER PASSING BEDSIDE NURSE SWALLOW. ADVANCE DIET TOLERATED. PATIENT HAD POOR APPETITE THIS SHIFT. NO CHANGES TO SKIN. PATIENT REMAINED REPOSITIONING SELF IN BED. BANANA BAG INFUSING AT 75 MLS/ HOUR. DR. MEJÍA CONSULTED ON PATIENT AND PLANNING ON SEEING HIM TOMORROW. PATIENT'S DAUGHTER INTO SEE HIM FOR SHORT TIME BEFORE VISITING HOURS OVER TONIGHT. DAUGHTER UPDATED ON PATIENT STATUS. PATIENT APPEARS COMFORTABLE AT THIS TIME. BED LOW, CALL LIGHT IN REACH, BED ALARM ON. WILL BE GIVING REPORT TO ONCOMING DIRECTOR OF GUIDANCE IN [employer] NURSE SHORTLY.
--- NOTE | 2020-06-30 21:30 | NUR ---
ASSUMPTION OF CARE PT RESTING IN BED, DIFFICULT TO AROUSE, GRIMACES WITH NURSING CARE, PT SEDATED WITH PRECEDEX (SEE FLOWSHEET FOR TITRATIONS), PLAN TO DECREASE PRECEDEX AND MEDICATE WITH ATIVAN AND LIBRIUM IF PT MORE AROUSABLE AND SAFE TO SWALLOW. PT ON RA WITH 02 SATURATIONS> 90%, MONITOR SHOWS SINUS RHYTHM WITH HR 50'S-60'S, BP STABLE. PT AFEBRILE. PATEL IN PLACE DRAINING ELLIE COLORED URINE. PT MOVES ALL EXTREMETIES IN BED. CIWA 9, AFTER DECREASING PRECEDEX FROM 0.6 TO 0.3, PT ORIENTED TO SELF ONLY, FOLLOWING SOME COMMANDS, REPORTS NAUSEA, PT MEDICATED WITH ZOFRAN AND ATIVAN (SEE MAR).
[2020-07-01 04:47] LABS: BASOPHILS ABSOLUTE AUTO 0.05 K/mm3 (0.00-0.23); BASOPHILS PERCENT AUTO 1 % (0-2); EOSINOPHILS ABSOLUTE AUTO 0.04 K/mm3 (0.00-0.68); EOSINOPHILS PERCENT AUTO 1 % (0-6); Hematocrit 28.1 % (37.0-53.0); Hemoglobin 9.4 g/dL (13.5-17.5); IMMATURE GRAN ABSOLUTE AUTO 0.01 K/mm3 (0.00-0.10); IMMATURE GRAN PERCENT AUTO 0 % (0-1); LYMPHOCYTES ABSOLUTE AUTO 1.38 K/mm3 (0.84-5.20); LYMPHOCYTES PERCENT AUTO 28 % (21-46); MONOCYTES PERCENT AUTO 10 % (4-13); Mean Corpuscular HGB 34.6 pg (26.0-34.0); Mean Corpuscular HGB Conc 33.5 g/dL (31.5-36.5); Mean Corpuscular Volume 103 fL (80-100); Mean Platelet Volume 10.1 fL (9.1-12.4); NEUTROPHILS ABSOLUTE AUTO 3.01 K/mm3 (1.96-9.15); NEUTROPHILS PERCENT AUTO 60 % (41-73); Platelet Count 497 K/mm3 (150-400); RDW Coefficient Variation 14.2 % (11.7-14.2); RDW Standard Deviation 52.7 fL (35.1-46.3); Red Blood Cell Count 2.72 M/mm3 (4.30-5.90); White Blood Cell Count 4.99 K/mm3 (4.00-11.30)
--- NOTE | 2020-07-01 05:02 | NUR ---
TO PTS ROOM AFTER CALL FROM RECREATION PROGRAM SPECIALIST, PT CHEWING ON ORTHO TECH LEADS. 2MG ATIVAN ADMINISTERED, NEW ORDERS FOR BILAT SOFT WRIST RESTRAINTS.
[2020-07-01 05:37] LABS: Alanine Aminotransfer (ALT/SGP 16 U/L (12-78); Albumin, Blood 2.1 g/dL (3.4-5.0); Albumin/Globulin Ratio 0.5 (0.8-1.8); Alk Phos 82 U/L (50-136); Anion Gap 9 mmol/L (6-16); Aspartate Aminotrans (AST/SGOT 18 U/L (12-37); Bilirubin, Total 1.7 mg/dL (0.1-1.0); Blood Urea Nitrogen 6 mg/dL (8-24); Bun/Creatinine Ratio 7.3 (12.0-20.0); CO2, Blood 21 mmol/L (21-32); Calcium, Blood 8.3 mg/dL (8.5-10.1); Chloride, Blood 114 mmol/L (98-108); Creatinine, Blood 0.82 mg/dL (0.60-1.20); Globulin, Blood 4.1 g/dL (2.2-4.0); Glomerular Filtration Rate >60 (60-); Glucose, Blood 95 mg/dL (70-99); Magnesium, Blood 2.3 mg/dL (1.6-2.4); Phosphorus, Blood 3.2 mg/dL (2.5-4.9); Potassium, Blood 3.6 mmol/L (3.5-5.5); Sodium, Blood 144 mmol/L (136-145); Total Protein, Blood 6.2 g/dL (6.4-8.2)
--- NOTE | 2020-07-01 06:02 | NUR ---
SHIFT SUMMARY PT RESTED T/O MUCH OF SHIFT, PRECEDEX ON SB SINCE 19, PT BECAME MORE AROUSABLE, CIWA 8-15, MEDICATED WITH ATIVAN x3 AND LIBRIUM x2 (SEE MAR), PT ORIENTED ONLY TO SELF AND FOLLOWS SOME DIRECTIONS, PT REPORTS BEING IN [place] AND IS UNABLE TO ANSWER QUESTIONS REGARDING MONTH/YEAR. PT MAKES SOME ODD STATEMENTS SUCH "TELL THE OTHERS THE PIZZA IS READY" AND COVERS UP SIDERAILS TO BED STATING THAT "IT IS COLD", PT WITH INCREASED RESTLESSNESS, PULLING AT TUBES AND CHEWING ON FUNCTIONAL DIRECTOR LEADS, PT PLACED IN BILAT SOFT WRIST RESTRAINTS. PATEL REMAINS IN PLACE WITH GOOD OUTPUT. PT IS CURRENTLY SLEEPING, CALL LIGHT WITHIN REACH, PT UNABLE TO USE APPROPRIATELY AT THIS TIME.
--- NOTE | 2020-07-01 07:56 | NUR ---
INITIAL ASSESSMENT PATIENT RESTING QUIETLY IN BED, WATCHING TV UPON ENTERING ROOM. RESTRAINTS REMOVED. PATIENT CALM AND COOPERATIVE. PATIENT ALERT AND ORIENTED EXCEPT TO MONTH. PATIENT IS VERY FORGETFUL. FINE TREMORS NOTED. PATIENT MUMBLES QUIETLY; DIFFICULT TO UNDERSTAND AT TIMES. CIWA SCORE OF 10 THIS AM. PATIENT STATES CHRONIC PAIN IS MANAGEABLE AT THIS TIME. PATIENT HAS TEMP OF 99.0 DEGREES FAHRENHEIT THIS AM. PATIENT WEAK BUT ABLE TO MOVE ALL EXTREMITIES. LIMITED ROM TO L SHOULDER DUE TO PAST SHOULDER SURGERIES, PER PATIENT REPORT. PATIENT SATTING 90% AND GREATER ON RA. LUNGS CLEAR T/O. PATIENT IN SR, HR 60S TO 70S. SBP LOW 100S. ABDOMEN MILDLY DISTENDED, SOFT, WITH HYPERACTIVE BS NOTED. LAST BM YESTERDAY AND WAS DIARRHEA. PATEL IN PLACE DRAINING DARK ORANGE COLORED URINE. SKIN APPEARS WNL. PATIENT ABLE TO REPOSITION HIPS IN BED INDEPENDENTLY. PRECEDEX ON SB. NS TKO. D5W 1/2 NS INFUSING AT 75 MLS/ HOUR. BED LOW, CALL LIGHT IN REACH, BED ALARM ON. WILL CONTINUE TO MONITOR PATIENT FREQUENTLY THROUGHOUT SHIFT.
--- NOTE | 2020-07-01 12:04 | NUR ---
PATIENT CONFUSED. PATIENT ORIENTED TO SELF AND FOLLOWING COMMANDS. PATIENT IS FORGETFUL EVEN RIGHT AFTER NURSE DIRECTION AND EXPLANATION. PATIENT CONTINUES TO TRY AND GUESS THE YEAR WHEN ASKIN FOR THE MONTH. PATIENT BELIEVES HE IS IN [place]. CIWA SCORE OF 15. PRN ATIVAN AND LIBRIUM GIVEN. PATIENT ANXIOUS, RESTLESS. RESTRAINTS PLACED BACK ON AT 0920 PATIENT CONTINUES TO TRY AND PULL AT LINES AND CORDS. HR 70S TO 80S. SBP LOW 100S TO 130S. SEDIMENT NOTED IN URINE. PATIENT APPEARS WITHOUT PAIN AT THIS TIME. NO OTHER ACUTE CHANGES TO NOTE ON AT THIS TIME. WILL CONTINUE TO MONITOR.
--- NOTE | 2020-07-01 16:00 | NUR ---
PATIENT ON PRECEDEX AT 0.1 MCG/ KG/ HOUR. PATIENT LETHARGIC FROM PRECEDEX. PATIENT REMAINS CONFUSED. CIWA OF 5. HR 50S TO 60S. SBP 130S TO 140S. NO OTHER ACUTE CHANGES TO NOTE ON AT THIS TIME. WILL CONTINUE TO MONITOR.
--- NOTE | 2020-07-01 18:56 | NUR ---
SHIFT SUMMARY THIS AM PATIENT ORIENTED EXCEPT TO MONTH. SHIFT PROGRESSED PATIENT BECAME EVEN MORE CONFUSED, HALLUCINATIONS, ANXIOUS, RESTLESS, PICKING AT LINES AND CORDS CONSTANTLY EVEN WITH REDIRECTION CONSISTENTLY. PRECEDEX RANGED FROM SB TO 0.2 MCG/ KG/ HOUR THIS SHIFT; CURRENTLY ON SB. PATIENT GIVEN PRN LIBRIUM AND ATIVAN MULTIPLE TIMES THIS SHIFT. CIWAS RANGED FROM 5 TO 20. PATIENT DENIES SUICIAL IDEATION TODAY. DR. MEJÍA STOPPED BY TO SEE PATIENT, BUT PATIENT TOO CONFUSED; STATED HE WILL TRY AGAIN TOMORROW. PATIENT HAD TMAX OF 99.0 DEGREES FAHRENHEIT. PATIENT REMAINED SATTING 90% AND GREATER ON RA. PATIENT REMAINED SB TO SR, HR 50S TO 80S. SBP LOW 100S TO 140S. NO BM THIS SHIFT. PATIENT CONTINUES TO HAVE POOR APPETITE. PATEL REMAINS DRAINING DARK ORANGE COLORED URINE WITH SEDIMENT NOTED. PATIENT REPOSITIONING OWN HIPS. PRECEDEX ON SB. NS TKO. BANANA BAG INFUSING. PATIENT APPEARS COMFORTABLE AT THIS TIME. BED LOW, CALL LIGHT IN REACH. REPORT GIVEN TO ONCOMING CONTROLLER REPAIRER AND TESTER NURSE.
--- NOTE | 2020-07-01 22:11 | NUR ---
ASSUMPTION OF CARE PT ALERT AND ORIENTED TO SELF, YEAR, AND FOLLOWING DIRECTIONS, PT WITH INCREASED CONVERSATION WITH STAFF, SOMETIMES RELEVANT TO CURRENT HOSPITALIZATION OTHER TIMES DISCUSSING ODD SUBJECTS NOT PERTAINING TO CURRENT SITUATION SUCH SUBJECTS HE LIKED IN SCHOOL AND CLONING OF SHEEP, PT REMAINS CALM AND COOPERATIVE. CIWA 9, MEDICATED WITH LIBRIUM, PT TOLERATED MOST OF HIS EVENING MEDS WITH WATER, HOWEVER PT REPORTED INCREASED NAUSEA, MEDICATED WITH ZOFRAN AND HELD EVENING INDERAL R/T NAUSEA. PT UP TO BSC WITH LOOSE STOOL, PT VERY WEAK, WOULD LEAN OVER WHILE ON BSC, 2 STAFF MEMBERS WITH PT WHILE UP TO BSC, PLAN TO USE BEDPAN FOR FUTURE BM R/T SAFETY. PATEL IN PLACE DRANING DARK YELLOW URINE WITH INCREASED SEDIMENT. PT DENIED SI AT THIS TIME, VERIFIED WITH CAMERA PASSENGER CAR CONDUCTOR THAT PT IS BEING MONITORED VIA CAMERA. CALL LIGHT WITHIN REACH, PT HAS DIFFICULTY UNDERSTANING USE.
[2020-07-02 04:51] LABS: BASOPHILS ABSOLUTE AUTO 0.06 K/mm3 (0.00-0.23); BASOPHILS PERCENT AUTO 1 % (0-2); EOSINOPHILS ABSOLUTE AUTO 0.07 K/mm3 (0.00-0.68); EOSINOPHILS PERCENT AUTO 1 % (0-6); Hematocrit 26.5 % (37.0-53.0); Hemoglobin 8.6 g/dL (13.5-17.5); IMMATURE GRAN ABSOLUTE AUTO 0.03 K/mm3 (0.00-0.10); IMMATURE GRAN PERCENT AUTO 1 % (0-1); LYMPHOCYTES ABSOLUTE AUTO 1.69 K/mm3 (0.84-5.20); LYMPHOCYTES PERCENT AUTO 34 % (21-46); MONOCYTES ABSOLUTE AUTO 0.48 K/mm3 (0.16-1.47); MONOCYTES PERCENT AUTO 10 % (4-13); Mean Corpuscular HGB 34.1 pg (26.0-34.0); Mean Corpuscular HGB Conc 32.5 g/dL (31.5-36.5); Mean Corpuscular Volume 105 fL (80-100); Mean Platelet Volume 10.1 fL (9.1-12.4); NEUTROPHILS ABSOLUTE AUTO 2.63 K/mm3 (1.96-9.15); NEUTROPHILS PERCENT AUTO 53 % (41-73); Platelet Count 464 K/mm3 (150-400); RDW Standard Deviation 53.2 fL (35.1-46.3); Red Blood Cell Count 2.52 M/mm3 (4.30-5.90); White Blood Cell Count 4.96 K/mm3 (4.00-11.30)
[2020-07-02 05:18] LABS: Alanine Aminotransfer (ALT/SGP 18 U/L (12-78); Albumin, Blood 2.2 g/dL (3.4-5.0); Albumin/Globulin Ratio 0.5 (0.8-1.8); Alk Phos 78 U/L (50-136); Anion Gap 7 mmol/L (6-16); Aspartate Aminotrans (AST/SGOT 28 U/L (12-37); Bilirubin, Total 1.2 mg/dL (0.1-1.0); Blood Urea Nitrogen 6 mg/dL (8-24); Bun/Creatinine Ratio 7.2 (12.0-20.0); CO2, Blood 22 mmol/L (21-32); Calcium, Blood 8.1 mg/dL (8.5-10.1); Chloride, Blood 114 mmol/L (98-108); Creatinine, Blood 0.84 mg/dL (0.60-1.20); Globulin, Blood 4.3 g/dL (2.2-4.0); Glomerular Filtration Rate >60 (60-); Glucose, Blood 77 mg/dL (70-99); Magnesium, Blood 2.3 mg/dL (1.6-2.4); Potassium, Blood 3.3 mmol/L (3.5-5.5); Sodium, Blood 143 mmol/L (136-145); Total Protein, Blood 6.5 g/dL (6.4-8.2)
--- NOTE | 2020-07-02 06:26 | NUR ---
SHIFT SUMMARY PT RESTED WELL T/O SHIFT, REMAINS ORIENTED TO SELF AND FOLLOWING DIRECTIONS, SOMETIMES ORIENTED TO LOCATION. WRIST RESTRAINTS DC'D AT 0000, PT AGITATED AT TIMES, OCCASSIONALLY PULLS AT LINES/CORDS, REDIRECTABLE AT TIMES, MEDICATED WITH 50mg LIBRIUM x2 AND 2mg ATIVAN x2 THIS SHIFT, PRECEDEX REMAINS OFF T/O ENTIRE SHIFT. O2 SATURATIONS>90% ON RA, MONITOR SHOWS SINUS RHYTHM WITH HR 50'S-60'S, BP STABLE, PT AFEBRILE. PT TOLERATES SMALL AMOUNT OF PO INTAKE. PATEL IN PLACE WITH GOOD OUTPUT. PT REMAINS VERY WEAK BUT INDEPENDENTLY REPOSITIONS SELF IN BED. MORNING LABS SHOWS LOW POTASSIUM, NEW ORDER FOR 40 MEQ KCL IV, FIRST BAG CURRENTLY INFUSING RUNNING CONCURRENTLY WITH D5 1/2 NS R/T GLUCOSE TRENDING DOWN.
--- NOTE | 2020-07-02 06:51 | NUR ---
PT PULLLING CONSTRUCTION TECHNICIAN LEADS OFF, NEW ORDER FOR BILAT SOFT WRIST RESTRAINTS.
[2020-07-02 09:00] LABS: BASOPHILS ABSOLUTE AUTO 0.06 K/mm3 (0.00-0.23); BASOPHILS PERCENT AUTO 1 % (0-2); EOSINOPHILS ABSOLUTE AUTO 0.08 K/mm3 (0.00-0.68); EOSINOPHILS PERCENT AUTO 2 % (0-6); Hematocrit 28.6 % (37.0-53.0); Hemoglobin 9.2 g/dL (13.5-17.5); IMMATURE GRAN ABSOLUTE AUTO 0.03 K/mm3 (0.00-0.10); IMMATURE GRAN PERCENT AUTO 1 % (0-1); LYMPHOCYTES ABSOLUTE AUTO 1.57 K/mm3 (0.84-5.20); LYMPHOCYTES PERCENT AUTO 29 % (21-46); MONOCYTES ABSOLUTE AUTO 0.52 K/mm3 (0.16-1.47); MONOCYTES PERCENT AUTO 9 % (4-13); Mean Corpuscular HGB 33.7 pg (26.0-34.0); Mean Corpuscular HGB Conc 32.2 g/dL (31.5-36.5); Mean Corpuscular Volume 105 fL (80-100); Mean Platelet Volume 10.3 fL (9.1-12.4); NEUTROPHILS ABSOLUTE AUTO 3.25 K/mm3 (1.96-9.15); NEUTROPHILS PERCENT AUTO 59 % (41-73); Platelet Count 472 K/mm3 (150-400); RDW Standard Deviation 52.9 fL (35.1-46.3); Red Blood Cell Count 2.73 M/mm3 (4.30-5.90); White Blood Cell Count 5.51 K/mm3 (4.00-11.30)
--- NOTE | 2020-07-02 12:32 | NUR ---
REASSESSMENT PT HAS BEEN RESTING IN BED THROUGHOUT THE MORNING. HE IS ORIENTED TO SELF AND YEAR ONLY. HE DENIES HALLUCINATIONS, BUT WHEN HE WAS ASKED IF HE WANTS THE TV ON HE STATED IT ALREADY WAS, BUT IT WASN'T. HIS CIWAA WAS 8 THIS MORNING AND PT WAS MEDICATED WITH LIBRIUM. HE REMAINS IN RESTRAINTS BECAUSE HE IS PULLING AT IV'S AND LINES. EVEN WITH RESTRAINTS PT MANAGED TO GET A HOLD OF HIS CATHETER AND WAS PULLING HARD ON IT. RESTRAINTS AND LINES ADJUSTED SO PT CAN'T REACH THEM. PT'S LUNGS REMAIN CLEAR, SR, BP STABLE. PT ONLY DRANK MILK FOR BREAKFAST. HE IS TAKING SOME SMALL BITES OF LUNCH, BUT WANTS THEM VERY SPACED OUT. PHYSICAL THERAPY WORKED WITH PT. CONTINUING TO MONITOR.
--- NOTE | 2020-07-02 15:37 | NUR ---
PT HAS CONTINUED TO ONLY HAVE A CIWAA OF 8 OR LESS. LIBRIUM GIVEN ONCE THIS SHIFT. GOT PT UP TO SHOWER VIA SHOWER CHAIR AND PT WORKED WITH OCCUPATIONAL THERAPY THIS AFTERNOON WELL. HE REMAINS IN RESTRAINTS BECAUSE HE FORGETS TO LEAVE IV LINES AND PATEL ALONE. SPOKE WITH DR. HUERTA AND RECEIVED OK FOR PT TO TRANSFER TO PCU.
--- NOTE | 2020-07-02 17:02 | NUR ---
SHIFT SUMMARY PT HAS MAINTAINED A CIWAA OF 6-9 THROUGHOUT THE DAY. HE IS ORIENTED TO HIMSELF CONSISTENTLY, BUT CONFUSED TO LOCATION AND DATE. HE REMAINS IN RESTRAINTS TO KEEP HIM FROM PULLING AT HIS PATEL, IV LINES AND HEART MONITOR WIRES. LUNGS ARE CLEAR, RA, SR, BP STABLE. VERY POOR APPETITE TODAY. ABLE TO GET MILK AND JUICE IN HIM WHEN HE IS THIRSTY, BUT WAS ONLY ABLE TO GET HIM TO TAKE A FEW BITES OF MEALS. PATEL DRAINING CL YELLOW URINE. PT WAS SEEN BY DR. MEJÍA TODAY AND SUICIDE PRECAUTIONS DROPPED. PT TRANSFERRING TO PCU 9. REPORT GIVEN TO [facility]. AWAITING ROOM TO BE CLEANED.
--- NOTE | 2020-07-02 17:08 | NUR ---
Telephone report received from Nini Gr RN. Anticipate pt transfer to PCU 9 when the room has been cleaned.
--- NOTE | 2020-07-02 18:20 | NUR ---
Pt arrived to PCU 9 from ICU. Transferred with slider sheet and several staff members assisting from one bed to the other. THe pt is awake, alert, but oriented only to self. I reoriented him to place but just minutes later he could not recall where he was. OCcasionally mumbling, but able to carry on conversation about remote events such as his experiences in the , and his children. CIWA is 6 at this time. He was asssited with dinner, and ate only about 10%. Declined anything else to eat or drink. Lung sounds are clear to auscultation, heart sounds regular rate and rhythm, sinus on telemetry at 66 bpm. NO swelling or lack of skin integrity noted. IV fluids are infusing at 75 cc/hour. Agarwal catheter draining clear yellow urine. Clamped at 1800 to begin bladder training with view to d/c the agarwal by morning.
[2020-07-03 06:53] LABS: BASOPHILS ABSOLUTE AUTO 0.07 K/mm3 (0.00-0.23); BASOPHILS PERCENT AUTO 1 % (0-2); EOSINOPHILS ABSOLUTE AUTO 0.09 K/mm3 (0.00-0.68); EOSINOPHILS PERCENT AUTO 2 % (0-6); Hematocrit 28.4 % (37.0-53.0); IMMATURE GRAN ABSOLUTE AUTO 0.03 K/mm3 (0.00-0.10); IMMATURE GRAN PERCENT AUTO 1 % (0-1); LYMPHOCYTES ABSOLUTE AUTO 1.56 K/mm3 (0.84-5.20); LYMPHOCYTES PERCENT AUTO 31 % (21-46); MONOCYTES ABSOLUTE AUTO 0.48 K/mm3 (0.16-1.47); MONOCYTES PERCENT AUTO 10 % (4-13); Mean Corpuscular HGB 33.7 pg (26.0-34.0); Mean Corpuscular HGB Conc 31.7 g/dL (31.5-36.5); Mean Corpuscular Volume 106 fL (80-100); Mean Platelet Volume 10.2 fL (9.1-12.4); NEUTROPHILS ABSOLUTE AUTO 2.75 K/mm3 (1.96-9.15); NEUTROPHILS PERCENT AUTO 55 % (41-73); Platelet Count 474 K/mm3 (150-400); RDW Coefficient Variation 13.9 % (11.7-14.2); RDW Standard Deviation 53.6 fL (35.1-46.3); Red Blood Cell Count 2.67 M/mm3 (4.30-5.90); White Blood Cell Count 4.98 K/mm3 (4.00-11.30)
[2020-07-03 07:09] LABS: Alanine Aminotransfer (ALT/SGP 27 U/L (12-78); Albumin, Blood 2.1 g/dL (3.4-5.0); Albumin/Globulin Ratio 0.5 (0.8-1.8); Alk Phos 82 U/L (50-136); Anion Gap 7 mmol/L (6-16); Aspartate Aminotrans (AST/SGOT 39 U/L (12-37); Bilirubin, Direct 0.5 mg/dL (0.0-0.3); Bilirubin, Indirect 0.4 mg/dL (0.1-0.7); Bilirubin, Total 0.9 mg/dL (0.1-1.0); Blood Urea Nitrogen 6 mg/dL (8-24); Bun/Creatinine Ratio 7.1 (12.0-20.0); CO2, Blood 20 mmol/L (21-32); Calcium, Blood 8.3 mg/dL (8.5-10.1); Chloride, Blood 116 mmol/L (98-108); Creatinine, Blood 0.85 mg/dL (0.60-1.20); Globulin, Blood 4.4 g/dL (2.2-4.0); Glomerular Filtration Rate >60 (60-); Glucose, Blood 75 mg/dL (70-99); Phosphorus, Blood 3.9 mg/dL (2.5-4.9); Potassium, Blood 3.8 mmol/L (3.5-5.5); Sodium, Blood 143 mmol/L (136-145); Total Protein, Blood 6.5 g/dL (6.4-8.2)
--- NOTE | 2020-07-03 07:34 | NUR ---
SHIFT SUMMARY PT ALERT, ORIENTED TO SELF. KALIN ZURITA 4-7 THIS SHIFT. PT DENIES N/V/PAIN. NO TREMORS OR HALLUCINATIONS. SPO2>92% ON RA. TELEMETRY READS SR, 60'S. PATEL CATHETER DRAINING YELLOW URINE. BLADDER TRAINING PERFORMED T/O SHIFT. R POWERGLIDE WOULD NOT FLUSH THIS SHIFT, D/C'D. PT SLEPT OFF AND ON T/O THE SHIFT. CALL LIGHT IN REACH. WILL CONTINUE TO MONITOR.
--- NOTE | 2020-07-03 08:00 | NUR ---
CARE ASSUMED REPORT RECEIVED, CARE ASSUMED AT 0700 FROM [facility]. VITALS STABLE. PT SLEEPY, BUT AROUSES FOR ASSESSMENT AND THEN IS VERY AWAKE. SEE FULL ASSESSMENT. REPORTS MILD HEADACHE AND SHOULDER PAIN BUT DECLINES INTERVENTIONS BEYOND REPOSITIONING. RESTRAINTS REMOVED, PT EDUCATED AND AGREEABLE. WHEN REMINDED PT STATES, "OH, I'M SORRY." FORGETFUL, BUT REDIRECTABLE. CALL LIGHT IN REACH. BED IN LOWEST POSITION. BED ALARM IN PLACE.
[2020-07-03 08:09] LABS: HBSAG SCREEN Negative (Negative); HEP B CORE AB, TOT Negative (Negative); HEP C VIRUS AB <0.1 (0.0-0.9)
--- NOTE | 2020-07-03 18:10 | NUR ---
SUMMARY THROUGHOUT DAY, PT HAS BEEN INTERMITTENTLY UNWILLING TO PARTICIPATE IN ADL'S, MEDICATION AND MEALS. PT'S ORIENTATION CONSISTENT, BUT PT WEARS OUT QUICKLY AND HAS TAKEN FREQUENT NAPS. PATEL DISCONTINUED. ONE CONTINENT URINE IN BEDSIDE COMMODE SINCE THEN. CIWA MINIMAL. SEE ASSESSMENT. NO MEDICATIONS REQUIRED. PT WORKED WITH PHYSICAL THERAPY AFTER MULTIPLE ATTEMPTS AND PER PHYSICAL THERAPIST, PT A HEAVY ASSIST. THIS AFTERNOON, PT SET OFF BED ALARM AND SITTING UP AT SIDE OF BED. DEMANDS TO GET TO COMMODE. HEAVY THREE PERSON ASSIST TO BEDSIDE COMMODE. PT DID WELL ON WAY TO COMMODE, BUT REQUIRED MUCH MORE ASSISTANCE ON WAY BACK. PT PLACED IN CHAIR TO EAT DINNER. PT HAS ATE NONE OF ANY OF HIS MEALS, BUT HAS DRANK WATER. OFFERED PT AN ENSURE MILKSHAKE AND AGREEABLE. FOOD REQUEST PLACED. CHAIR ALARM IN PLACE UNDER PATIENT.
--- NOTE | 2020-07-04 01:27 | NUR ---
DAY LIGHT SAVINGS DAY LIGHT SAVINGS TIME CHANGE. FALL BACK ONE HOUR AT 0200. NOW CURRENTLY 0127, AGAIN.
[2020-07-04 04:32] LABS: Alanine Aminotransfer (ALT/SGP 26 U/L (12-78); Albumin, Blood 2.3 g/dL (3.4-5.0); Albumin/Globulin Ratio 0.5 (0.8-1.8); Alk Phos 84 U/L (50-136); Anion Gap 6 mmol/L (6-16); Aspartate Aminotrans (AST/SGOT 39 U/L (12-37); Bilirubin, Direct 0.6 mg/dL (0.0-0.3); Bilirubin, Indirect 0.2 mg/dL (0.1-0.7); Bilirubin, Total 0.8 mg/dL (0.1-1.0); Blood Urea Nitrogen 5 mg/dL (8-24); Bun/Creatinine Ratio 5.7 (12.0-20.0); CO2, Blood 23 mmol/L (21-32); Calcium, Blood 8.6 mg/dL (8.5-10.1); Chloride, Blood 116 mmol/L (98-108); Creatinine, Blood 0.88 mg/dL (0.60-1.20); Globulin, Blood 4.3 g/dL (2.2-4.0); Glomerular Filtration Rate >60 (60-); Glucose, Blood 78 mg/dL (70-99); Phosphorus, Blood 4.6 mg/dL (2.5-4.9); Potassium, Blood 3.9 mmol/L (3.5-5.5); Sodium, Blood 145 mmol/L (136-145); Total Protein, Blood 6.6 g/dL (6.4-8.2)
--- NOTE | 2020-07-04 05:52 | NUR ---
SHIFT SUMMARY NO ACUTE CHANGES THIS SHIFT. PT ALERT, ORIENTED TO SELF. PT CONTINUES TO IMPROVE SPEECH/VERBAL COMMUNICATION. SP02>92% ON RA. NO TELEMETRY. PT WAS ABLE TO USE URINAL STANDING AT BEDSIDE WITH 2 PERSON ASSISTANCE. PT WAS IN RECLINER AT BEGINNING OF SHIFT. ONCE HELPED TO BED (3 PERSON ASSIST), PT SLEPT T/O THE NIGHT. CIWA SCORES 0-4 T/O SHIFT. D5 INFUSED PER EMAR. IV IS PATENT, SALINE LOCKED CURRENTLY. CALL LIGHT IN REACH. WILL CONTINUE TO MONITOR.
--- NOTE | 2020-07-04 17:35 | NUR ---
SHIFT SUMMARY PT A&O TO SELF; CALM AND COOPERATIVE WITH CARE. SUSPICIOUS WITH STAFF AT TIMES. PT REPOSTIONING SELF IN BED. PT REPORTS LEFT SHOULDER PAIN, WILL CONTINUE TO MONITOR. PT DENIES SOB, CHEST PAIN, NAUSEA AND DIZZINESS. CIWA <8 T/O SHIFT. VSS. NO OTHER ACUTE CHANGES NOTED DUIRNG SHIFT. WILL CONTINUE TO MOINITOR.
[2020-07-05 04:40] LABS: Albumin, Blood 2.4 g/dL (3.4-5.0); Anion Gap 7 mmol/L (6-16); Blood Urea Nitrogen 5 mg/dL (8-24); Bun/Creatinine Ratio 5.8 (12.0-20.0); CO2, Blood 22 mmol/L (21-32); Calcium, Blood 8.7 mg/dL (8.5-10.1); Chloride, Blood 115 mmol/L (98-108); Creatinine, Blood 0.86 mg/dL (0.60-1.20); Glomerular Filtration Rate >60 (60-); Glucose, Blood 78 mg/dL (70-99); Magnesium, Blood 2.2 mg/dL (1.6-2.4); Phosphorus, Blood 5.7 mg/dL (2.5-4.9); Potassium, Blood 3.7 mmol/L (3.5-5.5); Sodium, Blood 144 mmol/L (136-145)
--- NOTE | 2020-07-05 07:26 | NUR ---
SHIFT SUMMARY PATIENT CONFUSED AND FORGETFUL BUT PLEASENT. PATIENT EASILY REDIRECTABLE AND REQUIRES FREQUENT REORIENTATION. PATIENT APPEARED TO SLEEP WELL THROUGHOUT MOST OF THE NIGHT. IV FLUIDS RUNNING PER ORDERS. VITAL SIGNS CHARTED. REPORT GIVEN TO ONCOMING RN.
--- NOTE | 2020-07-05 07:45 | NUR ---
Patient gave this nursing clerk permission to take care of him on 07/05/2020.
--- NOTE | 2020-07-06 05:44 | NUR ---
SUMMARY NO ACUTE CHANGES NOTED THROUGH THE NIGHT. PT HAS SLEPT WITH NO PROBLEMS, BED ALARM REMAINS ON FOR SAFETY, PT HAS BEEN CONFUSED BUT PLEASANT & COMPLIANT WITH CARE. REORIENTATION PROVIDED PRN, CALL LIGHT IN REACH, WCTM & REPORT TO ONCOMING NURSE.
--- NOTE | 2020-07-06 12:02 | NUR ---
PT WAS TRANSFERRED TO ROOM 351, REPORT GIVEN TO CHRISTIAN MADRID. NO ACUTE CHANGE FOR THE SHIFT, PT HAD STOMACH ACHE AND NAUSEA WITH BROWN EMESIS NOTICED THAT PT WAS SNACKING ON BEEF JERKY AT THE BEDSIDE TABLE, ZOFRAN GIVEN PRN, NO COMPLAINS AFTERWARDS, PT WORKED [facility] WAS ABLE TO TRANSFER TO RECLINER SAFELY. VITALS HAS BEEN STABLE. PT REMAINED ALERT TO SELF, DR GALARZA WAS IN TO SEE PT TODAY MADE SOME MEDICATIONS CHANGES DC'D CELEXA AND MINIPRESS. PT WAS TRANSFERRED VIA RECLINER ALL BELONGINGS SENT WITH PT.
--- NOTE | 2020-07-06 12:20 | NUR ---
Assumed Care Received report from Yanet PCU-RN. Patient arrived to unit via recliner, able to recall city ([place]) year (2019) and self. Not much of a conversationalist. Could not recall which branch of the he was in. Declined to have lunch, stated "not hungry". Patient is settled to room and call light in reach. Chair alarm on for safety. Will continue to monitor.
--- NOTE | 2020-07-06 14:09 | NUR ---
FALL At approximately 1330, patient's chair alarm was going off. Upon entering room, patient was found on the floor sitting on his buttocks. Patient stated "I need to pee" and was attempting to stand back up. This RN and Palliative Care RN Justyna assisted patient back to chair with moderate assist. Patient is weak and unsteady on feet, denies pain or any injury stating he just slid down the chair. Nursing supervisor bit and shank department Arely notified by recovery rn Sally. Dr. Torrez and daughter Clarity notified of fall by this RN. Will continue to monitor. Bed and chair alarms on.
--- NOTE | 2020-07-06 18:08 | NUR ---
DARK BROWN/BURGUNDY EMESIS NOTIFIED DR. THEODORE RE PATIENT HAVING MODERATE AMOUNTS OF DARK BROWN/BURGUNDY EMESIS. RECEIVED TELEPHONE ORDER FOR STAT H/H AND IV PROTONIX BID FIRST DOSE NOW. ORDER UPDATED.
[2020-07-06 18:20] LABS: Hemoglobin 10.6 g/dL (13.5-17.5)
--- NOTE | 2020-07-06 18:22 | NUR ---
Shift Summary A/Ox1 with intermittent confusion. Able to recall that he is in the hospital and sometimes aware of the year (2019), but don't know hospital name. 2P max assist for safety d/t uncoordination and unsteady gait. CIWA 4-5. Denies pain. One episode of nausea with emesis (see previous note), patient denies dizziness. Continent and has voided x 2 since up on the medical floor. 1x BM green, unformed, med. Does not use call light appropriately, pleasant to work with and cooperative with care. Patient had 1 fall this shift. VSS, afebrile. COVID test to be collected tomorrow morning [facility]. Will continue to monitor.
--- NOTE | 2020-07-07 06:13 | NUR ---
DR ESTEBAN hospitalist called to clarify rx for protonix & protonix 40 mg po bid rx. Had given 20 mg po at 0600 will need additional 20 mg this AM then 40 mg prior to dinner. Also reported holding inderal 60 mg HS dose due to SBP less than 100 in PT with positive orthostatics weakness & inablity to ambulate as usual. No vomiting but poor oral intake. Recent major wt loss. HX of Barretts esoph. denies hx of GI bleeding but [facility] mentions hemmroids & bleeding in 03/2019 that went on for 7 days? PT unable to verify. HX hiatal hernia dysphagia & wt loss, loss of appetite. 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 Denies attempt at self harm. States compliance with all [facility] rx as prescribed, reports DTR assists with meds.
[2020-07-07 09:36] LABS: Hematocrit 34.7 % (37.0-53.0); Hemoglobin 10.9 g/dL (13.5-17.5)
[2020-07-07 09:50] LABS: Albumin, Blood 2.7 g/dL (3.4-5.0); Anion Gap 9 mmol/L (6-16); Blood Urea Nitrogen 14 mg/dL (8-24); Bun/Creatinine Ratio 14.3 (12.0-20.0); CO2, Blood 23 mmol/L (21-32); Calcium, Blood 8.7 mg/dL (8.5-10.1); Chloride, Blood 109 mmol/L (98-108); Creatinine, Blood 0.98 mg/dL (0.60-1.20); Glomerular Filtration Rate >60 (60-); Glucose, Blood 103 mg/dL (70-99); Potassium, Blood 3.6 mmol/L (3.5-5.5); Sodium, Blood 141 mmol/L (136-145)
--- NOTE | 2020-07-07 10:16 | NUR ---
Blood pressure 92/59 Held propranolol 60 mg this morning d/t low blood pressure. Dr. Torrez informed and agreeable.
[2020-07-07] MEDS ORDERED: ACET325 PO (11:03)
[2020-07-07] MEDS ORDERED: FERSU300 PO (11:04)
[2020-07-07] MEDS ORDERED: ASCO500 PO (11:04)
[2020-07-07] MEDS ORDERED: Hair, Skin & N1 EACH PO (11:05)
[2020-07-07] MEDS ORDERED: PANT40 PO (11:05)
--- NOTE | 2020-07-07 12:51 | NUR ---
Discharge Summary A/Ox1-2 to city and self. [facility] Report called to receiving nurse Berna. Discharge paperwork and CM packet sent with patient. [facility] patient @ 1245 via w/c. IV removed, WNL. CIWA 1-2 so far. Denies nausea, dizziness, pain. No emesis. Remains 2p max assist with gait due to unsteady/imbalanced gait. Does not use call light appropriately, otherwise pleasant and cooperative with care.
== END 2020-07-07 12:51 | DRG 897 ==
LOC: ER 17:53 → MEDS 21:04 → ICUE 06-28 02:16 → PCU 07-02 17:37 → MEDS 07-06 11:58
PROVIDERS: Emergency Medicine; Family Medicine; Internal Medicine; ADMIT Internal Medicine
DX: F10.229 Alcohol dependence with intoxication, unspecified (principal); F12.129 Cannabis abuse with intoxication, unspecified; R29.6 Repeated falls; F10.288 Alcohol dependence with other alcohol-induced disorder; F10.231 Alcohol dependence with withdrawal delirium; E87.6 Hypokalemia; Z20.828 Contact with and (suspected) exposure to other viral communicable diseases; E86.0 Dehydration; Z87.820 Personal history of traumatic brain injury; I95.1 Orthostatic hypotension; E88.09 Other disorders of plasma-protein metabolism, not elsewhere classified; Z86.59 Personal history of other mental and behavioral disorders; Y90.2 Blood alcohol level of 40-59 mg/100 ml; E07.81 Sick-euthyroid syndrome; D63.8 Anemia in other chronic diseases classified elsewhere
CPT/HCPCS: 36415; 51702; 71045; 80048; 80053; 80069; 80076; 81001; 81003; 82248; 82550; 82607; 82728; 82746; 83540; 83550; 83605; 83735; 84100; 84443; 84466; 84484; 85014; 85018; 85025; 86317; 86704; 86708; 86803; 86850; 86900; 86901; 87040; 87086; 87340; 93005; 93010; 93306; 94762; 96372; 96374; 96375; 96376; 97110; 97162; 97167; 97530; 97535; 99285-25; A9270; A9270-GY; C1751; C9113; G0378; G0480; J1650; J1956; J2060; J2405; J3411; J3475; J3480; J7030; J7042; J7050; J7060; P9046; U0003; U0004